=== PATIENT | female | born 1955 | race Caucasian/White ===

== ENCOUNTER 2020-09-04 07:14 | Outpatient (CLI) | payer MEDICARE, OTHER, SELFPAY ==
--- NOTE | 2020-09-04 07:21 | NMCV_ITS ---
NM sony perf SPECT r/s* [id number] Mahogany Ojeda Age: 65 Gender: F : 1955 Exam Date: 09/04/2020 07:21 Ordering Phys: Wilfred Cabral PA-C XX Technologist: ANÍBAL Duarte Exam Location: [facility] Indications: ABNORMAL EKG, CHEST PAIN STRESS TEST Please see separate stress test report in [facility] for full findings IMAGE PROTOCOL Rest/Stress 1 Lexiscan Day Radiopharmaceutical Dose (mCi) Administration Site Administered by Rest: Tc-99m 10.8 IV ANÍBAL Beebe Sestamibi Stress:Tc-99m 32.6 IV ANÍBAL Beebe Sestamibi Rest: 04-Sep-2020 90 Discovery 630 Stress: 04-Sep-2020 30 Discovery 630 0.4mg Lexiscan. Images obtained in supine and prone position. SPECT RESULTS Technical Quality: Excellent Raw Data Analysis: Normal Image Corrections: No attenuation or motion correction applied Summed Stress Score: 0 Summed Rest Score: 0 Summed Difference Score: 0 PERFUSION FINDINGS SPECT images demonstrate homogeneous tracer distribution throughout the myocardium. FUNCTIONAL RESULTS (calculated via Gated SPECT) Stress Image LV EF (%): 81 Stress EDV (mL):69 TID: 0.97 Stress ESV (mL):13 FUNCTIONAL FINDINGS: The left ventricle is normal in size. Transient Ischemia Dilatation of 0.97. There is normal left ventricular systolic function. The left ventricular ejection fraction is normal with a value of 81%. There is normal left ventricular wall thickening. Normal end-diastolic and end-systolic volumes. IMPRESSIONS 1. Myocardial perfusion imaging is normal. 2. Overall left ventricular systolic function is normal without regional wall motion abnormalities. 3. The left ventricular ejection fraction is normal with a value of 81%. 4. This study suggests a low likelihood of angiographically significant coronary artery disease. Sophie Levine MD (Electronically Signed) Final Date: 04 September 2020 16:54 S
--- NOTE | 2020-09-04 07:21 | ECG_ITS ---
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 Interpretive Statements NAME OF STUDY: LEXISCAN SESTAMIBI STRESS TEST INDICATION: Chest Pain PROCEDURE: At the baseline, the blood pressure was 179/115 mm Hg with a heart rate of 68 bpm. The electrocardiogram showed normal sinus rhythm, normal axis and non specific ST depression. ??? The Lexiscan was infused over a period of 20 seconds. A total of 0.4 milligrams of Lexiscan was infused. The stress phase was continued for a total of 5 minutes. Heart rate at the end of the stress phase was 90 bpm with a blood pressure of 172/96 mm Hg. The EKG at the peak infusion revealed sinus rhythm with no significant ST-T wave changes. ??? Sestamibi was injected 20 seconds after the Lexiscan infusion. ??? Blood pressure at the end of the recovery phase was 182/102 mm Hg with a heart rate of 86 beats per minute. ??? CONCLUSION: 1. No significant EKG changes with the] LexiScan infusion. 2. No LexiScan induced chest pain or cardiac arrhythmia. 3. Normal blood pressure and heart rate response. 4. Sestamibi/sestamibi perfusion scan pending; see separate report. Electronically Signed On 09-07-2020 15:07:28 CDT by Sophie Levine M.D. [id number]
[2020-09-04 07:37] VITALS: BMI 42.5
[2020-09-04] MEDS: regadenoson 0.4 Mg/5 ml Syringe IVP (09:18)
[2020-09-04 09:33] VITALS: BP 173/91; PULSE 90
== END 2020-09-04 07:15 | disposition home or self-care (01) ==
PROVIDERS: PCP Physician Assistant Medical; Visit Provider Physician Assistant Medical
DX: R07.89 Other chest pain (principal); R94.31 Abnormal electrocardiogram [ECG] [EKG]
CPT/HCPCS: 78452; 93017; A9500; J2785

== ENCOUNTER → 2021-04-15 08:45 | Outpatient (BNVA) | payer MEDICARE, OTHER, SELFPAY | PROVIDERS: PCP Physician Assistant Medical; Visit Provider Internal Medicine | DX: R76.8 Other specified abnormal immunological findings in serum (principal); M25.50 Pain in unspecified joint; R53.83 Other fatigue; Z79.899 Other long term (current) drug therapy; Z11.59 Encounter for screening for other viral diseases; R21 Rash and other nonspecific skin eruption; M54.50 Low back pain, unspecified; R19.7 Diarrhea, unspecified; K59.00 Constipation, unspecified; Z82.61 Family history of arthritis | CPT/HCPCS: 36415; 80053; 82306; 82310; 82550; 82607; 82728; 82784; 83516; 83540; 83735; 83970; 84100; 84439; 84443; 84550; 85025; 85651; 86140; 86160; 86162; 86200; 86235; 86255; 86376; 86431; 86704; 86803; 87340; 99204 ==

== ENCOUNTER → 2021-12-29 15:19 | Outpatient (BNVA) | payer MEDICARE, OTHER, SELFPAY | PROVIDERS: PCP Physician Assistant Medical; Visit Provider Internal Medicine | DX: R76.8 Other specified abnormal immunological findings in serum (principal); M25.50 Pain in unspecified joint; R53.83 Other fatigue; R79.82 Elevated C-reactive protein (CRP) | CPT/HCPCS: 99213 ==

== ENCOUNTER → 2022-04-20 14:48 | Outpatient (BNVA) | payer MEDICARE, OTHER, SELFPAY | PROVIDERS: PCP Physician Assistant Medical; Visit Provider Internal Medicine | DX: R76.8 Other specified abnormal immunological findings in serum (principal); R53.83 Other fatigue; M25.50 Pain in unspecified joint; R79.82 Elevated C-reactive protein (CRP) | CPT/HCPCS: 99214 ==

== ENCOUNTER 2022-04-21 12:35 | Outpatient (CLI) | payer MEDICARE, OTHER, SELFPAY ==
--- NOTE | 2022-04-21 12:44 | XR_ITS ---
WS: [email or web address] Left foot, 2 views, 04/21/2022 Clinical Data: M25.50 - Pain in unspecified joint Comparison: None. Findings: No fractures or dislocations are seen. No bone destruction or erosion is noted. The joint spaces and soft tissues are normal. There is a plantar spur. XR/XR foot LT 2V 53985 Impression: Negative left foot.
--- NOTE | 2022-04-21 12:44 | XR_ITS ---
WS: [id number] Right knee, AP and lateral views, 04/21/2022 Clinical Data: R53.83 - Other fatigue Comparison: None. Findings: No fractures or dislocations are seen. There is medial joint compartment narrowing with a spur of the medial tibial plateau. There is spurring of the lateral tibial plateau and lateral femoral condyle. The right patella shows posterior spurring. The soft tissues are unremarkable. XR/XR knee RT 1-2V 22433 Impression: Mild osteoarthritis of the right knee Kellgren-Desean Classification: grade 2 (minimal): definite osteophytes and p ossible joint space narrowing
--- NOTE | 2022-04-21 12:44 | XR_ITS ---
WS: [id number] Lumbar spine, 3 views, 04/21/2022 Clinical Data: R53.83 - Other fatigue Comparison: Lateral lumbar spine, 03/16/2018. Findings: No compression fractures or subluxation is seen. There is degenerative disc narrowing at L4-L5 and L5 -S1. There is an anterior subluxation of 0.4 cm of L3 on L4.. The transverse processes and SI joints are normal. There is a minimal levoscoliosis. There are clips in the right upper quadrant from a cholecystectomy. XR/XR lumbar spine 2-3V* [id number] Impression: 1. Degenerative disc narrowing at L4-L5 and L5-S1. 2. Levoscoliosis and minimal 0.4 cm subluxation of L3 on L4.
--- NOTE | 2022-04-21 12:44 | XR_ITS ---
WS: [email or web address] Left knee, AP and lateral views, 04/21/2022 Clinical Data: R53.83 - Other fatigue Comparison: None. Findings: No fractures or dislocations are seen. There is narrowing of the lateral joint compartment with spurr ing of the lateral femoral condyle and lateral tibial plateau. There is minimal irregularity of the p osterior left patella.. The soft tissues are unremarkable. XR/XR knee LT 1-2V 47319 Impression: Mild osteoarthritis of the left knee Kellgren-Desean Classification: grade 2 (minimal): definite osteophytes and p ossible joint space narrowing
--- NOTE | 2022-04-21 12:44 | XR_ITS ---
WS: [email or web address] Left hand, 2 views, 04/21/2022 Clinical Data: R76.8 - Other specified abnormal immunological findings i... Comparison: None. Findings: No fractures or dislocations are seen. The soft tissues are unremarkable. There is severe osteoarthri tic change of the left second through fifth finger DIP joints. No periarticular demineralization or c alcifications are seen. 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
--- NOTE | 2022-04-21 12:44 | XR_ITS ---
WS: [email or web address] Right hand, 2 views, 04/21/2022 Clinical Data: R76.8 - Other specified abnormal immunological findings i... Comparison: None. Findings: No fractures or dislocations are seen. The soft tissues are unremarkable. There is minima l osteoarthritis of the second through fifth finger DIP joints. There is deformity of the proximal ph alanx of the right fifth finger from an old fracture. No periarticular demineralization or calcifications are seen. XR/XR hand RT 2V 04206 Impression: Intimal osteoarthritis of the second finger through fifth finger DIP joints.
--- NOTE | 2022-04-21 12:44 | XR_ITS ---
WS: [email or web address] Right foot, 2 views, 04/21/2022 Clinical Data: M25.50 - Pain in unspecified joint Comparison: None. Findings: No fractures or dislocations are seen. No bone destruction or erosion is noted. The joint spaces and soft tissues are normal. There is a plantar spur. XR/XR foot RT 2V 24179 Impression: Negative right foot.
== END 2022-04-21 12:36 | disposition home or self-care (01) ==
LOC: RAD 12:37
PROVIDERS: PCP Family Medicine; Visit Provider Internal Medicine
DX: M25.50 Pain in unspecified joint (principal); R76.8 Other specified abnormal immunological findings in serum; R53.83 Other fatigue; E53.8 Deficiency of other specified B group vitamins; R79.82 Elevated C-reactive protein (CRP); M41.86 Other forms of scoliosis, lumbar region; S33.130A Subluxation of L3/L4 lumbar vertebra, initial encounter; M17.0 Bilateral primary osteoarthritis of knee; M19.042 Primary osteoarthritis, left hand; M19.041 Primary osteoarthritis, right hand
CPT/HCPCS: 72100; 73120; 73560; 73620

== ENCOUNTER → 2022-06-16 14:36 | Outpatient (BNVA) | payer MEDICARE, OTHER, SELFPAY | PROVIDERS: PCP Family Medicine; Visit Provider Internal Medicine | DX: R76.8 Other specified abnormal immunological findings in serum (principal); R53.83 Other fatigue; M25.50 Pain in unspecified joint; G62.9 Polyneuropathy, unspecified | CPT/HCPCS: 99214 ==